=== PATIENT | male | born 1965 | race Caucasian/White ===

== ENCOUNTER 2021-09-21 05:55 | Day surgery (SDC) | payer BC ==
--- NOTE | 2021-09-14 13:45 | RAD REPORT ---
EXAM DESCRIPTION: RAD - Chest Pa And Lat (2 Views) - 09/14/2021 1:40 pm CLINICAL HISTORY: [employer] lab[employer] procedure COMPARISON: Chest Pa And Lat (2 Views) dated 02/24/2019 FINDINGS: Lines: None. Lungs: No evidence of edema or pneumonia. Pleural: No significant pleural effusions or pneumothorax. Cardiac: The heart size is within normal limits. Bones: No acute fractures. Other: IMPRESSION: No acute cardiopulmonary disease.
[2021-09-14 13:51] LABS: Absolute Lymphocytes (CBC) 1.7 K/uL (0.7-4.9); Basophils % 0.5 % (0-1.3); Hematocrit 46.4 % (39.6-49.0); MPV 10.3 fL (7.6-11.3); RBC Red Blood Cell Count 5.01 M/uL (4.33-5.43)
[2021-09-14 13:59] LABS: Protime INR 0.93
[2021-09-14 14:02] LABS: Potassium 3.8 mmol/L (3.5-5.1)
[~2021-09-21 05:55] MED LIST: LIDOCAINE 2% INJ, MPF 2 ML 0 ML ONE
[2021-09-21] MEDS ORDERED: LIDOCAINE 1% 20 ML MDV ONE (06:01)
[2021-09-21] MEDS ORDERED: HEPA 1000U/500MLS 2,000 UNIT/1,000 ML BAG IV ONE (06:01)
[2021-09-21] MEDS ORDERED: NA CHLORIDE 0.9% 500 ML ONE (06:21)
[2021-09-21] MEDS ORDERED: ATROPINE SULF 1 MG/10 ML SYR IV ONE (06:54)
[2021-09-21] MEDS ORDERED: FENTANYL CITR 100 MCG/2 ML ONE (06:54)
[2021-09-21] MEDS ORDERED: MIDAZOLAM HCL 2 MG/2 ML INJ ONE (06:54)
[2021-09-21] MEDS ORDERED: VERAPAMIL HCL 10 MG/4 ML VIAL IV ONE (06:54)
[2021-09-21] MEDS ORDERED: HEPARIN 5000 UNIT/ML 1 ML VIAL ONE (06:54)
[2021-09-21 08:21] VITALS: TEMP 97
--- NOTE | 2021-09-21 11:01 | OP ---
Date of Procedure: 09/21/2021 Surgeon: JAYDEN GUADARRAMA Procedure Performed: Selective coronary angiogram with left heart catheterization. Access: Right radial artery 6-Tunisian closed with TR band. Indications: Positive stress test as part of preop evaluation before surgery. Complications: None. Anesthesia: Total sedation time was 15 minutes. Description Of Procedure: After risks, benefits, and alternatives were explained, the patient agreed to the procedure and signed informed consent. The patient was brought into the cardiac catheterizat ion laboratory, prepped and draped in usual sterile fashion. Then, we accessed the right radial anju ry using pediatric micropuncture kit and placed a 6-Tunisian slender sheath and took 5-Tunisian Cresco 4.0 catheter in the aortic root, engaged left main, right coronary artery, took standard views, and then catheter was pushed over the wire into the LV, reported LVEDP and pullback did not record any gradie nt. Then, removed the catheter, then the sheath, and placed TR band with good hemostasis. Findings: 1.Left main, normal. 2.LAD; moderate-sized vessel, normal with normal diagonal branches. 3.Left circumflex; large, dominant vessel. No disease. 4.RCA, medium-sized vessel. No disease. 5.LVEDP around 14 mmHg. Conclusions: Normal coronary arteries and falsely positive stress test. Plan: Proceed with surgery as planned. SR/MODL Voice ID: [id number] Report ID: [id number]
[2021-09-21 11:09] VITALS: BP 133/96; O2SAT 98
== END 2021-09-21 09:40 | disposition home or self-care (01) ==
LOC: CCL 05:55
PROVIDERS: ATTEND Internal Medicine
DX: R94.39 Abnormal result of other cardiovascular function study (principal); I10 Essential (primary) hypertension; F17.210 Nicotine dependence, cigarettes, uncomplicated; Z01.810 Encounter for preprocedural cardiovascular examination
CPT/HCPCS: 36415; 71046; 80048; 85025; 85610; 85730; 93458; C1893; J1644; J2250; J2469; J3010; J7040